=== PATIENT | female | born 1935 | race Caucasian/White ===

== ENCOUNTER 2020-03-06 07:09 | Outpatient (REF) | payer SELFPAY ==
[2020-03-06 07:43] LABS: Hematocrit 27.7 % (37-47); Hemoglobin 8.5 g/dl (12.0-16.0); Mean Corpuscular HGB Conc 30.7 g/dl (31.0-35.0); Mean Corpuscular Hemoglobin 31.1 pg (27.0-33.0); Mean Corpuscular Volume 101.5 fL (80-98); Mean Platelet Volume 12.5 fL (9.4-12.3); NRBC Pct Auto 0.4 /100WBC (0.0-0.2); Platelet Count 235 X10*3/uL (160-400); Red Blood Count 2.73 X10*6/uL (4.20-5.50); Red Cell Distribution Width 19.7 % (11.0-16.0); White Blood Count 8.3 X10*3/uL (4.8-10.8)
[2020-03-06 08:10] LABS: Alanine Aminotransferase 28 U/L (0-31); Albumin Level 3.1 g/dL (3.5-5.0); Alkaline Phosphatase 86 U/L (39-117); Anion Gap 18 (12-20); Aspartate Amino Transferase 39 U/L (5-31); Bilirubin Total 0.6 mg/dL (0.0-1.0); Blood Urea Nitrogen 29 mg/dL (9-16); Calcium 7.5 mg/dL (8.4-10.2); Carbon Dioxide 24 mmol/L (22-29); Chloride 98 mmol/L (96-108); Estimated Glomerular Filt Rate 14; Glucose Random 93 mg/dL (60-115); Sodium 136 mmol/L (135-145); Total Protein 5.4 g/dL (6.5-8.0)
== END 2020-03-06 07:10 | disposition home or self-care (01) ==
LOC: HO.MMNH1L 07:09
PROVIDERS: Visit Provider Family Medicine
DX: N18.6 End stage renal disease (principal); Z99.2 Dependence on renal dialysis
CPT/HCPCS: 36415; 80053; 85027

== ENCOUNTER 2020-03-08 19:16 | Outpatient (REF) | payer MEDICARE, SELFPAY | END 2020-03-08 19:17 | disposition home or self-care (01) | LOC: HO.LNP 19:16 | PROVIDERS: Visit Provider Family Medicine | DX: Z20.828 Contact with and (suspected) exposure to other viral communicable diseases (principal); J18.9 Pneumonia, unspecified organism | CPT/HCPCS: 87635 ==

== ENCOUNTER 2020-03-18 07:32 | Outpatient (REF) | payer SELFPAY ==
[2020-03-18 08:45] LABS: Hematocrit 23.8 % (37-47); Hemoglobin 7.2 g/dl (12.0-16.0); Mean Corpuscular HGB Conc 30.3 g/dl (31.0-35.0); Mean Corpuscular Volume 105.8 fL (80-98); Mean Platelet Volume 11.2 fL (9.4-12.3); Red Blood Count 2.25 X10*6/uL (4.20-5.50); Red Cell Distribution Width 17.6 % (11.0-16.0); White Blood Count 8.6 X10*3/uL (4.8-10.8)
[2020-03-18 10:56] LABS: Anion Gap 19 (12-20); Blood Urea Nitrogen 37 mg/dL (9-16); Calcium 7.4 mg/dL (8.4-10.2); Carbon Dioxide 23 mmol/L (22-29); Chloride 99 mmol/L (96-108); Estimated Glomerular Filt Rate 8; Glucose Random 87 mg/dL (60-115); Potassium 3.2 mmol/l (3.3-5.1); Sodium 138 mmol/L (135-145)
== END 2020-03-18 07:33 | disposition home or self-care (01) ==
LOC: HO.MMNH1L 07:32
PROVIDERS: Visit Provider Family Medicine
DX: Z20.828 Contact with and (suspected) exposure to other viral communicable diseases (principal); N18.6 End stage renal disease; Z99.2 Dependence on renal dialysis
CPT/HCPCS: 36415; 80048; 85027; 87635